=== PATIENT | male | born 2000 | race Caucasian/White ===

== ENCOUNTER 2022-12-08 10:36 | Emergency (ER) | payer OTHER ==
[~2022-12-08] VITALS: Ht 187 cm; Wt 84.3 kg
--- NOTE | 2022-12-08 11:02 | ED Abdominal Pain ---
General Chief Complaint: Abdominal/GI Problems Stated Complaint: ABD PAIN Nursing Triage Note: PT AMBULATORY TO ER WITH SO. PT REPORTS LOWER ABD PAIN ONSET 0603 THIS AM, REPORTS CONSTANT DULL PAIN, PAIN DOES RADIATED TO LOWER BACK. PT WAS NAUSEATED THIS AM. PT INITIALLY PRESENTED TO WALK-IN CLINIC AT [place], REFERRED TO ER FOR FURTHER TESTING. Source of Information: Patient Exam Limitations: No Limitations History of Present Illness Date Seen by Provider: Dec 08, 2022 Time Seen by Provider: 11:00 Initial Comments Patient is a 22-year-old male who presents ED with lower abdominal pain. Started around 6:00 this morning. Patient describes the pain as dull and constant rates 6 out of 10. Rating pain to the back. Patient denies of any nausea, vomiting, diarrhea. No history of previous pain that is similar. Denies of any urinary symptoms such as dark urine, frequent urination, decreased urine output. Denies taking thing for pain at home. No history of previous abdominal surgery at home. Was seen at the walk-in clinic at [place] referred to the ER for further evaluation. Patient denies fever, chills, chest pain, shortness of breath, cough, ear pain. Patient reports sore throat over the past few days Allergies and Home Medications Allergies Coded Allergies: No Known Drug Allergies (Unverified , 12/08/22) Patient Home Medication List Home Medication List Reviewed: Yes Ciprofloxacin HCl (Cipro) 500 Mg Tablet, 500 MG PO BID Prescribed by: LUCIANO KAN on 12/08/22 1218 Hydrocodone/Acetaminophen (Hydrocodone-Acetamin 5-325 mg) 5 Mg-325 Mg Tablet, 1 TAB PO Q4H PRN for PAIN-MODERATE (5-7) Prescribed by: LUCIANO KAN on 12/08/22 1218 Metronidazole (Metronidazole) 500 Mg Tablet, 500 MG PO TID Prescribed by: LUCIANO KAN on 12/08/22 1218 Review of Systems Review of Systems Constitutional: No chills, No diaphoresis, No malaise, No weakness EENTM: No Eye Pain, No Mouth Pain, No Mouth Swelling Respiratory: Denies Shortness of Air, Denies Wheezing Cardiovascular: Denies Chest Pain Gastrointestinal: Abdominal Pain; Denies Diarrhea, Denies Nausea, Denies Vomiting Genitourinary: Denies Burning, Denies Discharge, Denies Drainage, Denies Frequency Musculoskeletal: No back pain Skin: No change in color, No change in hair/nails All Other Systems Reviewed Negative Unless Noted: Yes Past Ieqoisg-Youcli-Vgnomj Hx Patient Social History Tobacco Use?: No Substance use?: No Alcohol Use?: Yes Pt feels they are or have been: No Immunizations Up To Date First/Initial COVID19 Vaccinat: DENIES Physical Exam Vital Signs Vital Signs - First Documented 12/08/22 10:54 Temp 36.4 Pulse 63 Resp 18 B/P (MAP) 127/68 (87) Pulse Ox 98 O2 Delivery Room Air Capillary Refill : Height/Weight/BMI Height: '" Weight: lbs. oz. kg; 24.00 BMI Method: General Appearance: WD/WN, no apparent distress HEENT: PERRL/EOMI, normal ENT inspection, TMs normal, pharynx normal Neck: non-tender, full range of motion, supple, normal inspection Respiratory: chest non-tender, lungs clear, normal breath sounds, no respiratory distress, no accessory muscle use Cardiovascular: regular rate, rhythm, no edema, no gallop, no JVD Gastrointestinal: normal bowel sounds, soft, no organomegaly, other (Right lower quadrant tenderness, left lower quadrant tenderness. Negative psoas sign. Negative Rovsing sign) Extremities: normal range of motion, non-tender, normal inspection, no pedal edema Back: normal inspection, no CVA tenderness, no vertebral tenderness Neurologic/Psychiatric: accounts clerk II-XII nml as tested, no motor/sensory deficits, alert, normal mood/affect, oriented x 3 Progress/Results/Core Measures Results/Orders Lab Results Laboratory Tests Test 12/08/22 11:05 Range/Units White Blood Count 11.5 H 4.3-11.0 10^3/uL Red Blood Count 4.41 4.30-5.52 10^6/uL Hemoglobin 14.4 13.3-17.7 g/dL Hematocrit 41 40-54 % Mean Corpuscular Volume 94 80-99 fL Mean Corpuscular Hemoglobin 33 25-34 pg Mean Corpuscular Hemoglobin Concent 35 32-36 g/dL Red Cell Distribution Width 12.1 10.0-14.5 % Platelet Count 196 130-400 10^3/uL Mean Platelet Volume 11.6 9.0-12.2 fL Immature Granulocyte % (Auto) 0 % Neutrophils (%) (Auto) 83 H 42-75 % Lymphocytes (%) (Auto) 8 L 12-44 % Monocytes (%) (Auto) 8 0-12 % Eosinophils (%) (Auto) 1 0-10 % Basophils (%) (Auto) 0 0-10 % Neutrophils # (Auto) 9.4 H 1.8-7.8 10^3/uL Lymphocytes # (Auto) 0.9 L 1.0-4.0 10^3/uL Monocytes # (Auto) 0.9 0.0-1.0 10^3/uL Eosinophils # (Auto) 0.1 0.0-0.3 10^3/uL Basophils # (Auto) 0.0 0.0-0.1 10^3/uL Immature Granulocyte # (Auto) 0.0 0.0-0.1 10^3/uL Urine Color YELLOW Urine Clarity CLEAR Urine pH 8.5 5-9 Urine Specific [place] 1.015 L 1.016-1.022 Urine Protein 1+ H NEGATIVE Urine Glucose (UA) NEGATIVE NEGATIVE Urine Ketones NEGATIVE NEGATIVE Urine Nitrite NEGATIVE NEGATIVE Urine Bilirubin NEGATIVE NEGATIVE Urine Urobilinogen 1.0 < = 1.0 MG/DL Urine Leukocyte Esterase NEGATIVE NEGATIVE Urine RBC (Auto) NEGATIVE NEGATIVE Urine RBC RARE /HPF Urine WBC NONE /HPF Urine Crystals NONE /LPF Urine Bacteria NEGATIVE /HPF Urine Casts NONE /LPF Urine Mucus SMALL H /LPF Urine Culture Indicated NO Sodium Level 141 135-145 MMOL/L Potassium Level 3.9 3.6-5.0 MMOL/L Chloride Level 106 98-107 MMOL/L Carbon Dioxide Level 24 21-32 MMOL/L Anion Gap 11 5-14 MMOL/L Blood Urea Nitrogen 15 7-18 MG/DL Creatinine 0.89 0.60-1.30 MG/DL Estimat Glomerular Filtration Rate 125 BUN/Creatinine Ratio 17 Glucose Level 93 70-105 MG/DL Calcium Level 9.5 8.5-10.1 MG/DL Corrected Calcium 9.1 8.5-10.1 MG/DL Total Bilirubin 0.7 0.1-1.0 MG/DL Aspartate Amino Transf (AST/SGOT) 21 5-34 U/L Alanine Aminotransferase (ALT/SGPT) 24 0-55 U/L Alkaline Phosphatase 71 40-136 U/L Total Protein 7.1 6.4-8.2 GM/DL Albumin 4.5 3.2-4.5 GM/DL Lipase 8 8-78 U/L My Orders Orders - YUAN CREWS Ua Culture If Indicated (12/08/22 10:54) Cbc With Automated Diff (12/08/22 10:59) Comprehensive Metabolic Panel (12/08/22 10:59) Lipase (12/08/22 10:59) Ct Abd/Pelv W (Appendicitis) (12/08/22 10:59) Iohexol Injection (Omnipaque 350 Mg/Ml 1 (12/08/22 11:15) Received Contrast (Hold Metformin- Contr (12/08/22 11:15) Ns (Ivpb) (Sodium Chloride 0.9% Ivpb Bag (12/08/22 11:15) Medications Given in ED Current Medications Medications Dose Ordered Sig/Feng Route Start Time Stop Time Status Last Admin Dose Admin Iohexol 100 ml ONCE ONCE IV 12/08/22 11:15 12/08/22 11:16 DC 12/08/22 11:25 80 ML Sodium Chloride 100 ml ONCE ONCE IV 12/08/22 11:15 12/08/22 11:16 DC 12/08/22 11:25 80 ML Vital Signs/I&O 12/08/22 12/08/22 10:54 12:40 Temp 36.4 36.4 Pulse 63 63 Resp 18 18 B/P (MAP) 127/68 (87) 127/72 Pulse Ox 98 98 O2 Delivery Room Air Room Air Blood Pressure Mean: 87 Departure Communication (PCP) Patient presents ED with lower abdominal pain. Right and left lower quad abdominal pain. Radiating to the back. No vomiting, fever, chills or diarrhea. No history of previous abdominal pain or surgery. Due to location of pain CBC, CMP, lipase, urinalysis and CT abdomen pelvis rule out appendicitis. Differential diagnoses appendicitis, colitis, ureterolithiasis, cystitis. Denies of any penile discharge or concern for sexual transmitted infection. No current urinary symptoms. Urinalysis without evidence of infection. CBC showed a slight elevated white blood count otherwise grossly unremarkable. Chemistry grossly unremarkable. CT abdomen pelvis shows appendix that is measuring 9 mm diameter without prominent adjacent inflammatory stranding. Small amount of free pelvic fluid which is abnormal finding in a male. Indeterminate lesion in the caudate of the liver. Recommend outpatient CT with and without IV contrast on a nonemergent basis for further evaluation. He has no liver pain with normal liver enzymes and bilirubin. Patient was discussed with general surgeon Dr. Jennifer ervin. Patient states pain is improving. Recommends Cipro and Flagyl and pain medication. Provided general surgery outpatient follow-up. If any worsening symptoms such as fever, abdominal pain, vomiting to return back to ED. discussed more of a liquid diet for the next few days Impression Primary Impression: Abdominal pain Additional Impression: Liver lesion Disposition: HOME, SELF-CARE Condition: Stable Departure-Patient Inst. Decision time for Depature: 12:14 Referrals: [facility],LOCAL PHYSICIAN (PCP) Primary Care Physician Patient Instructions: Abdominal Pain, Adult ED Add. Discharge Instructions: Take antibiotics as prescribed. If any worsening pain, fever, vomiting to return back to ED. Recommend more of a clear liquid diet for the next few days. All discharge instructions reviewed with patient and/or family. Voiced understanding. Scripts Hydrocodone/Acetaminophen (Hydrocodone-Acetamin 5-325 mg) 5 Mg-325 Mg Tablet 1 TAB PO Q4H PRN for PAIN-MODERATE (5-7), #6 TAB Prov: YUAN CREWS 12/08/22 Metronidazole (Metronidazole) 500 Mg Tablet 500 MG PO TID for 7 Days, #21 TAB Prov: YUAN CREWS 12/08/22 Ciprofloxacin HCl (Cipro) 500 Mg Tablet 500 MG PO BID for 7 Days, #14 TAB Prov: YUAN CREWS 12/08/22 YUAN CREWS Dec 08, 2022 11:02
[2022-12-08 11:14] LABS: BASOPHILS % (AUTO) 0 % (0-10); EOSINOPHILS # (AUTO) 0.1 10^3/uL (0.0-0.3); EOSINOPHILS % (AUTO) 1 % (0-10); HEMATOCRIT 41 % (40-54); HEMOGLOBIN 14.4 g/dL (13.3-17.7); LYMPHOCYTES # (AUTO) 0.9 10^3/uL (1.0-4.0); LYMPHOCYTES % (AUTO) 8 % (12-44); MEAN CORPUSCULAR HEMOGLOBIN 33 pg (25-34); MEAN CORPUSCULAR HGB CONC 35 g/dL (32-36); MEAN CORPUSCULAR VOLUME 94 fL (80-99); MEAN PLATELET VOLUME 11.6 fL (9.0-12.2); MONOCYTES # (AUTO) 0.9 10^3/uL (0.0-1.0); MONOCYTES % (AUTO) 8 % (0-12); NEUTROPHILS # (AUTO) 9.4 10^3/uL (1.8-7.8); NEUTROPHILS % (AUTO) 83 % (42-75); PLATELET COUNT 196 10^3/uL (130-400); WHITE BLOOD COUNT 11.5 10^3/uL (4.3-11.0)
[2022-12-08 11:15] LABS: BILIRUBIN,URINE NEGATIVE (NEGATIVE); CLARITY,URINE CLEAR; COLOR,URINE YELLOW; GLUCOSE, URINE (UA) NEGATIVE (NEGATIVE); KETONES,URINE NEGATIVE (NEGATIVE); LEUKOCYTE ESTERASE ,URINE NEGATIVE (NEGATIVE); NITRITE,URINE NEGATIVE (NEGATIVE); PH,URINE 8.5 (5-9); PROTEIN,URINE 1+ (NEGATIVE)
[2022-12-08] MEDS ORDERED: NS 100 ML (IVPB) BAG IV ONE (11:15)
[2022-12-08] MEDS ORDERED: HOLD METFORMIN - RECEIVED CONTRAST 20 ML VIAL IV SCH (11:15)
[2022-12-08] MEDS ORDERED: IOHEXOL 350 MG/ML 100 ML (OMNIPAQUE 350) VIAL IV ONE (11:15)
[2022-12-08 11:23] LABS: RBC,URINE RARE /HPF
[2022-12-08 11:24] LABS: BACTERIA,URINE NEGATIVE /HPF
[2022-12-08 11:27] LABS: ALBUMIN 4.5 GM/DL (3.2-4.5); POTASSIUM 3.9 MMOL/L (3.6-5.0)
[2022-12-08 11:29] LABS: CALCIUM 9.5 MG/DL (8.5-10.1)
[2022-12-08 11:30] LABS: TOTAL PROTEIN 7.1 GM/DL (6.4-8.2)
[2022-12-08 11:32] LABS: BILIRUBIN,TOTAL 0.7 MG/DL (0.1-1.0)
[2022-12-08 11:33] LABS: CREATININE SERUM 0.89 MG/DL (0.60-1.30)
--- NOTE | 2022-12-08 11:49 | Diagnostic Imaging Report ---
PROCEDURE: CT abdomen and pelvis with contrast. TECHNIQUE: Multiple contiguous axial images were obtained through the abdomen and pelvis after the administration of intravenous contrast. All CT scans use one or more of the following dose optimizing techniques: automated exposure control, MA and/or KvP adjustment based on patient size and exam type or iterative reconstruction. DATE: December 08, 2022. COMPARISON: None. INDICATION: 22-year-old male, lower abdominal pain. FINDINGS: The visualized portions of the lung bases are clear. The heart is not enlarged. There is no identified pericardial effusion. The liver is unremarkable in size and contour. There is a low-attenuation lesion within the adjacent prominent vessel in the caudate on axial image 22 measuring 3.2 x 2.5 cm in axial extent. The main, right, and left portal veins are patent. There is no additional identified liver lesion. The gallbladder is unremarkable. There is no intrahepatic or extrahepatic bile duct dilation. The main pancreatic duct is not abnormally dilated. Unremarkable appearance of the pancreatic parenchyma. The spleen is normal in size. The adrenal glands are unremarkable. Unremarkable appearance of the renal parenchyma. The urinary collecting systems are not distended. There is no identified renal or ureteral stone. Urinary bladder is unremarkable. There is a tubular low-attenuation prominence along the expected course of the urethra at the level of the prostate. There is a small amount of free pelvic fluid which is technically abnormal in a male. The intestinal tract is not distended. The appendix is best identified on axial image 119 and adjacent sequential images. The appendix measures 9 mm in diameter. There is no particular prominent inflammatory stranding adjacent to the appendix. There is no free intraperitoneal air. There is no identified drainable fluid collection. There is no identified abnormally enlarged lymph node in the abdomen or pelvis which meets CT size criteria for adenopathy. There is no identified acute bony abnormality. IMPRESSION: CT ABDOMEN AND PELVIS. 1. The appendix is measuring 9 mm in diameter which is abnormally dilated; however, there is no particularly prominent adjacent inflammatory stranding. Appendicitis would be difficult to exclude. 2. Small amount of free pelvic fluid which is an abnormal finding in a male. No identified focal fluid collection. 3. Indeterminate lesion in the caudate. Dedicated liver mass protocol CT without and with intravenous contrast on a nonemergent outpatient basis is recommended for further assessment. 4. Tubular low-attenuation prominence affecting in the expected location of the prostatic urethra which may relate to focal dilation of the urethra at this level. Dictated by: Dictated on workstation # [id number]
[2022-12-08] MEDS ORDERED: ACHD5005 PO (12:18)
[2022-12-08] MEDS ORDERED: CIPR-225 PO (12:18)
[2022-12-08] MEDS ORDERED: METR-145 PO (12:18)
[2022-12-08 12:40] VITALS: BP 127/72
== END 2022-12-08 12:40 | disposition home or self-care (01) ==
LOC: ER 10:40
DX: K76.9 Liver disease, unspecified (principal); Z28.310 Unvaccinated for COVID-19
CPT/HCPCS: 36415; 74177; 80053; 81000; 83690; 85025